=== PATIENT | female | born 1930 | race Caucasian/White ===

== ENCOUNTER → 2018-02-22 | Outpatient (CLI) | payer OTHER ==
[~2018-02-22] VITALS: Ht 147.3 cm; Wt 79.0 kg
[~2018-02-22] MED LIST: AMLO-511 PO; ATOR40TA28 PO; DICY10 PO; FLUT1BLS IH; FURO40 PO; KDUR10 PO; LEVO100 PO; OMEP20 PO
[2018-02-22 12:17] VITALS: BP 125/66
== END | disposition home or self-care (01) ==
LOC: SRCNTR 11:46
PROVIDERS: ATTEND Internal Medicine Critical Care Medicine
DX: I10 Essential (primary) hypertension (principal); K21.9 Gastro-esophageal reflux disease without esophagitis; E78.5 Hyperlipidemia, unspecified; E03.9 Hypothyroidism, unspecified; K44.9 Diaphragmatic hernia without obstruction or gangrene
CPT/HCPCS: G0463